=== PATIENT | male | born 1960 | race Caucasian/White ===

== ENCOUNTER 2022-11-19 20:08 | Emergency (ER) | payer OTHER ==
[2022-11-19] MEDS ORDERED: Ondansetron 4 MG Tab.DIS PO ONE (21:07)
[2022-11-19] MEDS ORDERED: Alum Hydrox/Mag Hydrox/Simeth 30 ML, Lidocaine 2% 15 ML PO ONE ×2 (21:10)
== END 2022-11-19 23:01 | disposition home or self-care (01) ==
LOC: JD.ED 20:08
DX: K52.9 Noninfective gastroenteritis and colitis, unspecified (principal); K21.9 Gastro-esophageal reflux disease without esophagitis; E03.9 Hypothyroidism, unspecified; Z88.0 Allergy status to penicillin; Z88.1 Allergy status to other antibiotic agents; Z79.899 Other long term (current) drug therapy
CPT/HCPCS: 36415; 80053; 83690; 83735; 85025; 86140; 99284; A9270